=== PATIENT | male | born 1960 | race Caucasian/White ===

== ENCOUNTER 2017-12-19 12:36 | Emergency (ER) | END 2017-12-19 14:26 ==

== ENCOUNTER 2018-08-08 18:10 | Emergency (ER) | payer OTHER ==
[~2018-08-08] VITALS: Ht 174 cm; Wt 61.4 kg
[~2018-08-08 18:10] MED LIST: DICY10CA40 PO
[2018-08-08 18:16] VITALS: Ht 174 cm; Wt 61.4 kg
[2018-08-08] MEDS ORDERED: TRIMETHOPRIM/SULFAMETHOX (DS) TAB PO ONE (18:30)
[2018-08-08] MEDS ORDERED: CEPHALEXIN 500 MG CAP PO ONE (18:30)
[2018-08-08] MEDS ORDERED: CEPH-443 PO (19:06)
[2018-08-08] MEDS ORDERED: SULF1TAB31 PO (19:06)
--- NOTE | 2018-08-08 19:13 | ERD ---
ER Documentation Chief Complaint Chief Complaint [id number],body rash X1 yr HPI This is a 57-year-old male with a remote history of alcohol abuse. The patient indicates he is had multiple relapses of his alcohol use and his last consu mption of alcohol was roughly 5 days ago. The patient denies any hallucinations. He denies headache. He denies any shakiness or palpitations. The patient had been seen and evaluated at [facility] yesterday. I had been 1 of the attending physicians who have evaluated the patient. He received to telemetry psych evaluations by 2 different psychiatrist. He provided multiple conflicting information. When he initially arrived he was still hospital he stated he was suicidal. However on the second telemetry psych evaluation he stated he never had any suicidal thoughts or ideations and wanted to leave. The patient is homeless. He was refusing a social work consult. He stated today he has no suicidal homicidal thoughts or ideations. Yesterday he also complained to the telemetry psychiatrist that he was having testicular pain and a rash for 1 year. He states he is not been sexually active. I had evaluated the patient and the patient had significant scrotal swelling with ov erlying erythremia but no warmth or tenderness. Ultrasound of the testes have been performed and reviewed by myself. The patient had no evidence of testicular torsion. The patient had a loculated fluid collection along the right side of the testicle measuring 11.5 x 8.3 x 6.1 cm. This fluid collection was contiguous into the inguinal canal as well as contiguous with ascites seen in the abdomen. The right testicle measured 3.9 x 1.2 x 2.6 cm in the left testicle measured 2.7 x 1.8 x 1.6 cm. The patient stated he had taken the bus from [facility] to [place]. He had phoned 911 stating that he wanted to be reevaluated for the testicular rash which again has been present for over 1 year. He said no fevers or shaking or chills. He denies any shortness of breath. ROS All systems reviewed and are negative except as per history of present illness. Medications Home Meds Active Scripts Cephalexin* (Keflex*) 500 Mg Capsule, 500 MG PO QID for 7 Days, CAP Prov:DARIO ROSE MD 08/08/18 Sulfamethoxazole/Trimethoprim* (Bactrim Ds* Tablet) 1 Each Tablet, 1 TAB PO BID, #14 TAB Prov:DARIO ROSE MD 08/08/18 Dicyclomine HCl (Dicyclomine HCl) 10 Mg Capsule, 10 MG PO TID PRN for ABDOMINAL CRAMPING, #20 CAP Prov:FREDERICK GONZALEZ MD 05/15/18 Allergies Allergies: Coded Allergies: No Known Allergy (Verified , 05/15/18) PMhx/Soc History of Surgery: Yes (NASAL SURGERY) Anesthesia Reaction: No Hx Neurological Disorder: No Hx Respiratory Disorders: No Hx Cardiac Disorders: No Hx Psychiatric Problems: Yes (bipolar, schizophrenia) Hx Miscellaneous Medical Probl: Yes (chronic alcholism) Hx Alcohol Use: Yes Hx Substance Use: Yes (crystal meth "often but not daily") Hx Tobacco Use: Yes (1/2 pack to 1 pack/day) Smoking Status: Current every day smoker Physical Exam Vitals Vital Signs Date Temp Pulse Resp B/P (MAP) Pulse Ox O2 O2 Flow FiO2 Time Delivery Rate 08/08/18 98.6 76 18 142/74 98 Room Air 18:36 (96) 08/08/18 98.6 70 18 142/74 98 18:16 (96) Physical Exam Constitutional:Well-developed. Disheveled HEENT:Normocephalic. Atraumatic.Pupils were equal round reactive to light. Moist mucous membranes.No tonsillar exudates. Neck: No nuchal rigidity. No lymphadenopathy. No posterior cervical spine tenderness or step-offs. Respiratory: Not using accessory muscles of respiration.Lungs were clear to auscultation bilaterally. No rhonchi. No rales. No wheezing. Cardiovascular: Regular rate regular rhythm.No murmurs. No rubs were appreciated.S1, S2 normal. Distal pulses are palpable 2+ bilaterally. GI: Abdomen was soft. Nontender. Non Distended with no tense ascites. No pulsatile abdominal masses or bruits. No rebound. No guarding. Bowel sounds were present and normal. : Genital examination was performed by myself. The patient has significant testicular swelling with overlying erythremia and no warmth or tenderness. No phimosis. The fluid collection is prominent on the right side of the testicle. No gangrene. Muscle skeletal: Full range of motion of both the upper and lower extremities bilaterally.Normal muscle tone.No assymetrical calf tenderness or swelling. Skin: No petechia, no purpura. No lesions on the palms or the soles of the feet. No maculopapular rash. NEURO: Patient was alert, awake, orientated x3.No facial droop. Gait observed and normal with no ataxia.Speech had regular rate and rhythm. No focal neurological deficits. Result Diagram: 08/08/18183008/08/181 Results 24 hrs Laboratory Tests Test 08/08/18 18:31 White Blood Count 5.2 10^3/ul Red Blood Count 3.01 10^6/ul Hemoglobin 10.1 g/dl Hematocrit 30.6 % Mean Corpuscular Volume 101.7 fl Mean Corpuscular Hemoglobin 33.6 pg Mean Corpuscular Hemoglobin Concent 33.0 g/dl Red Cell Distribution Width 16.9 % Platelet Count 110 10^3/UL Mean Platelet Volume 10.8 fl Immature Granulocytes % 0.200 % Neutrophils % 58.7 % Lymphocytes % 28.4 % Monocytes % 10.4 % Eosinophils % 1.9 % Basophils % 0.4 % Nucleated Red Blood Cells % 0.0 /100WBC Immature Granulocytes # 0.010 10^3/ul Neutrophils # 3.0 10^3/ul Lymphocytes # 1.5 10^3/ul Monocytes # 0.5 10^3/ul Eosinophils # 0.1 10^3/ul Basophils # 0.0 10^3/ul Nucleated Red Blood Cells # 0.0 10^3/ul Prothrombin Time 16.2 Sec Prothrombin Time Ratio 1.3 INR International Normalized Ratio 1.29 Activated Partial Thromboplast Time 36.4 Sec Sodium Level 142 mmol/L Potassium Level 3.5 mmol/L Chloride Level 109 mmol/L Carbon Dioxide Level 26 mmol/L Anion Gap 7 Blood Urea Nitrogen 14 mg/dl Creatinine 0.58 mg/dl Est Glomerular Filtrat Rate mL/min > 60 mL/min Glucose Level 78 mg/dl Calcium Level 8.7 mg/dl Total Bilirubin 0.8 mg/dl Direct Bilirubin 0.00 mg/dl Indirect Bilirubin 0.8 mg/dl Aspartate Amino Transf (AST/SGOT) 63 IU/L Alanine Aminotransferase (ALT/SGPT) 57 IU/L Alkaline Phosphatase 163 IU/L Total Protein 6.9 g/dl Albumin 2.9 g/dl Globulin 4.00 g/dl Albumin/Globulin Ratio 0.72 Ethyl Alcohol Level < 10.0 mg/dl Current Medications Medications Dose Sig/Ines Start Time Status Last (Trade) Ordered Route PRN Stop Time Admin Dose Reason Admin 1 tab ONCE ONCE 08/08/18 DC 08/08/18 Trimethoprim/ PO 18:30 18:52 08/08/18 18:31 Sulfamethoxaz ole (Bactrim (Ds)) Cephalexin 500 mg ONCE ONCE 08/08/18 DC 08/08/18 (Keflex) PO 18:30 18:52 08/08/18 18:31 Procedures/MDM This is a 57-year-old male who presents to the emergency department for reevaluation of testicular rash for 1 year. Stated in the history of present illness I have seen and evaluated the patient yesterday at another hospital. I was able to obtain copies of the ultrasound that have been ordered and reviewed by myself at 2011 on August 07, 2018 less than 24 hours prior to this patient's hospital visit. There is no changes in the patient's physical exam. The patient has a large loculated fluid collection in the right lateral aspect of the testicle that was contiguous into the inguinal canal as well as with abdominal ascites. The patient had no tense abdominal ascites or need for paracentesis. The patient was requesting antibiotics. Therefore he was given Bactrim and Keflex in the emergency department. I repeated ancillary laboratory work and the patient had no leukocytosis. The patient serum ethanol was undetec table there is no signs of impending delirium tremors. The patient was given Ativan. He is refusing a social work consult as he is homeless. I do not feel a telemetry psych evaluation was necessary at this time as he did receive 2 yesterday at another facility and again today did not show any signs of acute psychosis or suicidal homicidal thoughts or ideations. Departure Diagnosis: Primary Impression: Scrotum swelling Additional Impression: Cellulitis Site of cellulitis: unspecified site Qualified Codes: L03.90 - Cellulitis, unspecified Condition: Fair Patient Instructions: Cellulitis, Testicular Pain, Unclear Cause DARIO ROSE MD Aug 08, 2018 19:13
[2018-08-08] MEDS ORDERED: ONDANSETRON 4 MG INJ IV PRN (20:00)
[2018-08-08] MEDS ORDERED: ACETAMINOPHEN 325 MG TAB PO PRN (20:00)
[2018-08-08 20:36] VITALS: BP 134/78; PULSE 72; RESP 16
== END 2018-08-08 21:00 | disposition home or self-care (01) ==
LOC: E/R 18:10
DX: N50.89 Other specified disorders of the male genital organs (principal); F17.210 Nicotine dependence, cigarettes, uncomplicated; N49.2 Inflammatory disorders of scrotum
CPT/HCPCS: 80053; 80307; 85025; 85610; 85730; 99283